=== PATIENT | female | born 1985 | race Caucasian/White ===

== ENCOUNTER 2017-11-07 03:44 | Emergency (ER) | payer SELFPAY ==
[2017-11-07 04:16] VITALS: RESP 18; TEMP 98.4; O2SAT 100
--- NOTE | 2017-11-07 04:29 | ED PDOC ---
Arrival/HPI - General Chief Complaint: Medical Clearance Time Seen by Provider: 11/07/17 03:52 Historian: Patient, Spouse - History of Present Illness Narrative History of Present Illness (Text): 11/07/17 04:28 Anna Villareal is a 32 year old female, P:1, currently 8 weeks , who presents to the emergency department complaining of vaginal bleeding with associated lower abdominal cramping tonight. 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 Patient last was full- term, delivered via . Patient denies any fever, chills, chest pain, shortness of breath, nausea, vomiting, diarrhea, urinary symptoms, back pain, neck pain, headache, dizziness, or any other complaints. Time/Duration: Other (tonight) Symptom Onset: Gradual Symptom Course: Unchanged Activities at Onset: Light Context: Home Past Medical History - Provider Review Nursing Documentation Reviewed: Yes - Psychiatric Hx Substance Use: No - Surgical History Hx Section: Yes Family/Social History - Physician Review Nursing Documentation Reviewed: Yes Family/Social History: Unknown Family HX Smoking Status: Never Smoked Hx Alcohol Use: No Hx Substance Use: No Allergies/Home Meds Allergies/Adverse Reactions: Allergies No Known Allergies Allergy (Verified 11/07/17 04:10) Home Medications: Home Meds Medication Instructions Recorded Confirmed No Known Home Med 11/07/17 11/07/17 Review of Systems - Physician Review All systems were reviewed & negative as marked: Yes - Review of Systems Constitutional: Normal. absent: Fevers Eyes: Normal ENT: Normal Respiratory: Normal. absent: SOB, Cough Cardiovascular: Normal. absent: Chest Pain Gastrointestinal: Abdominal Pain. absent: Diarrhea Genitourinary Female: Vaginal Bleeding. absent: Dysuria, Frequency, Hematuria, Urine Output Changes Musculoskeletal: Normal. absent: Back Pain, Neck Pain Skin: Normal. absent: Rash Neurological: Normal. absent: Headache, Dizziness Endocrine: Normal Hemo/Lymphatic: Normal Psychiatric: Normal Physical Exam Vital Signs Reviewed: Yes Vital Signs Temp Pulse Resp BP Pulse Ox 11/07/17 04:11 98.4 F 79 18 109/80 100 Temperature: Afebrile Blood Pressure: Normal Pulse: Regular Respiratory Rate: Normal Appearance: Positive for: Well-Appearing, Non-Toxic, Comfortable Pain Distress: None Mental Status: Positive for: Alert and Oriented X 3 - Systems Exam Head: Present: Atraumatic, Normocephalic Pupils: Present: PERRL Extroacular Muscles: Present: EOMI Conjunctiva: Present: Normal Mouth: Present: Moist Mucous Membranes Neck: Present: Normal Range of Motion Respiratory/Chest: Present: Clear to Auscultation, Good Air Exchange. No: Respiratory Distress, Accessory Muscle Use Cardiovascular: Present: Regular Rate and Rhythm, Normal S1, S2. No: Murmurs Abdomen: No: Tenderness, Distention, Peritoneal Signs Genitourinary/Pelvic Exam: Present: Normal External Genitalia, Vaginal Bleeding (small amount of vaginal bleeding), Cervical os Closed. No: Adenexal Tenderness , Adenexal Mass, Cervical Motion Tendernes Back: Present: Normal Inspection Upper Extremity: Present: Normal Inspection. No: Cyanosis, Edema Lower Extremity: Present: Normal Inspection. No: Edema Neurological: Present: GCS=15, CN II-XII Intact, Speech Normal Skin: Present: Warm, Dry, Normal Color. No: Rashes Psychiatric: Present: Alert, Oriented x 3, Normal Insight, Normal Concentration Medical Decision Making ED Course and Treatment: 11/07/17 04:28 Impression: 32 year old female complaining of vaginal bleeding and lower abdominal cramping tonight. Plan: -- Transvaginal US -- Labs, beta-HCG, blood type and screen -- UA -- Reassess and disposition Progress Notes: 11/07/17 06:30 Pt. with only minimal scanty vaginal bleed.Symptoms improved. 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 to be discharged for outpatient follow up with discharge instructions given. - Lab Interpretations Lab Results: 11/07/17 04:45 11/07/17 04:45 Lab Results 11/07/17 04:45: WBC 6.5, RBC 4.49, Hgb 11.2 L, Hct 34.9 L, MCV 77.7 L, MCH 24.9 L, MCHC 32.1, RDW 15.6 H, Plt Count 117 L, MPV 12.4 H 11/07/17 04:45: Sodium 143, Potassium 4.0, Chloride 106, Carbon Dioxide 23, Anion Gap 19, BUN 11, Creatinine 0.6 L, Est GFR ( Amer) > 60, Est GFR ( Non-Af Amer) > 60, Random Glucose 97, Calcium 9.1, Total Bilirubin 0.2, AST 22, ALT 28, Alkaline Phosphatase 46, Total Protein 7.8, Albumin 4.5, Globulin 3.3, Albumin/Globulin Ratio 1.4 11/07/17 04:45: Urine Color Red, Urine Appearance Bloody, Urine pH 7.0, Ur Specific [place] 1.020, Urine Protein >=300 H, Urine Glucose (UA) Negative, Urine Ketones Negative, Urine Blood Large H, Urine Nitrate Negative, Urine Bilirubin Negative, Urine Urobilinogen 0.2, Ur Leukocyte Esterase Negative, Urine RBC Tntc, Urine WBC Negative, Ur Epithelial Cells 6 - 8, Urine Bacteria Few, Urine Other Mucus, Urine HCG, Qual Positive 11/07/17 04:45: Blood Type Pending, Antibody Screen Pending, BBK History Checked No verified bt - RAD Interpretation Radiology Orders: 11/07/17 04:29 OB TRANSVAGINAL [US] Stat - Medication Orders Current Medication Orders: Acetaminophen (Tylenol 325mg Tab) 650 mg PO STAT STA Stop: 11/07/17 06:52 Sodium Chloride (Sodium Chloride 0.9%) 1,000 mls @ 100 mls/hr IV .Q10H [id number] Last Admin: 11/07/17 04:54 Dose: 100 mls/hr eMAR Start Stop Document 11/07/17 04:54 AD (Rec: 11/07/17 04:54 AD [id number]) Intravenous Solution Start Date 11/07/17 Start Time 04:54 - Scribe Statement The provider has reviewed the documentation as recorded by the Colin Vela Provider Scribe Attestation: All medical record entries made by the Scribe were at my direction and personally dictated by me. I have reviewed the chart and agree that the record accurately reflects my personal performance of the history, physical exam, medical decision making, and the department course for this patient. I have also personally directed, reviewed, and agree with the discharge instructions and disposition. Disposition/Present on Arrival - Present on Arrival Any Indicators Present on Arrival: No History of DVT/PE: No History of Uncontrolled Diabetes: No Urinary Catheter: No History of Decub. 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
[2017-11-07] MEDS ORDERED: Sodium Chloride 0.9% 1,000 ML IV SCH (04:30)
[2017-11-07 05:25] LABS: URINE BILIRUBIN NEGATIVE (NEGATIVE); URINE BLOOD LARGE (NEGATIVE); URINE GLUCOSE (UA) NEGATIVE (NEGATIVE); URINE LEUKOCYTE ESTERASE NEGATIVE Leu/uL (NEGATIVE); URINE PROTEIN >=300 mg/dL (<30 mg/dL); URINE UROBILINOGEN 0.2 E.U./dL (<1 E.U./dL)
[2017-11-07 05:27] LABS: HEMOGLOBIN 11.2 g/dL (12.0-16.0); MEAN CELL VOLUME 77.7 fl (80.0-105.0); MEAN CORPUSCULAR HEMOGLOBIN 24.9 pg (25.0-35.0); MEAN CORPUSCULAR HGB CONC 32.1 g/dl (31.0-37.0); MEAN PLATELET VOLUME 12.4 fl (7.0-11.0); RBC 4.49 10^6/uL (3.5-6.1); RED CELL DISTRIBUTION WIDTH 15.6 % (11.5-14.5); WHITE BLOOD COUNT 6.5 10^3/ul (4.5-11.0)
[2017-11-07 05:28] LABS: HCG,QUALITATIVE URINE POSITIVE (NEGATIVE)
[2017-11-07 05:29] LABS: URINE APPEARANCE BLOODY (CLEAR); URINE COLOR RED (YELLOW)
[2017-11-07 05:33] LABS: URINE RBC TNTC /hpf (0-2); URINE WBC NEGATIVE /hpf (0-6)
[2017-11-07 05:34] LABS: URINE BACTERIA FEW (NEG)
[2017-11-07 05:36] LABS: ALB/GLOB RATIO 1.4 (1.1-1.8); ALBUMIN 4.5 g/dL (3.0-4.8); ALT/SGPT 28 U/L (7-56); AST/SGOT 22 U/L (14-36); BLOOD UREA NITROGEN 11 mg/dL (7-21); CALCIUM 9.1 mg/dL (8.4-10.5); GFR AFRICAN-AMERICAN > 60; GFR NON-AFRICAN AMERICAN > 60
--- NOTE | 2017-11-07 06:26 | US ---
EXAM: US First Trimester, Transabdominal US , Transvaginal CLINICAL HISTORY: 32 years old, female; Signs and symptoms; Lmp or gestational age (in weeks): 09/05/2017; Other: Heavy bleeding with clots; ; Additional info: Pain TECHNIQUE: Real-time transabdominal and transvaginal obstetrical ultrasound of the maternal pelvis and a first trimester with image documentation. Transvaginal imaging was used for better evaluation of the fetus and adnexa. Real time cine loop images are submitted.Grayscale, color and spectral pulse Doppler images are submitted.A duplex/doppler ultrasound was performed specifically BOTH COLOR FLOW AND spectral Doppler analysis (waveforms) were performed and interpreted. COMPARISON: No relevant prior studies available. FINDINGS: Limitations: Limited by bowel gas. Beta-hCG level: Positive urine beta hCG. Gestation: There is a gestational sac with migration of gestational sac in the lower uterine segment/cervix. These findings represent spontaneous in progress in view of patient's history of heavy bleeding and passage of clots and migration of the gestational sac. There is a yolk sac present. There is no embryonic pole demonstrated. The average ultrasound age of the gestation calculated from mean sac diameter is 5 weeks and 6 days. Placenta/amniotic fluid: Cannot be adequately evaluated due to the early gestational age. Uterus/cervix: The endometrial stripe measures 17 mm. No myometrial mass. Ovaries: The right ovarian cyst measuring 2.6 x 2.0 x 2.0 cm. The right ovary measures 4.6 x 2.7 x 4.1 cm. The left ovary measures 2.5 x 2.1 x 2.6 cm. Duplex assessment demonstrates presence of color Doppler signal and spectral Doppler waveform in right ovary. Duplex assessment demonstrates presence of color Doppler signal and spectral Doppler waveform in left ovary. No mass. Free fluid: No free fluid. IMPRESSION: 1. There is a gestational sac with migration of gestational sac in the lower uterine segment/cervix. These findings represent spontaneous in progress in view of patient's history of heavy bleeding and passage of clots and migration of the gestational sac. 2. The right ovarian simple corpus luteum measuring 2.6 x 2.0 x 2.0 cm. Correlation with clinical OB evaluation and further workup or followup as recommended by patient's clinical data.
[2017-11-07 07:13] VITALS: BP 110/86; PULSE 78
== END 2017-11-07 07:47 | disposition home or self-care (01) ==
LOC: ED 03:44
DX: O03.9 Complete or unspecified spontaneous abortion without complication (principal); Z3A.08 8 weeks gestation of pregnancy
CPT/HCPCS: 76817; 80053; 81001; 84702; 84703; 85027; 86850; 86900; 99282; J7040

== ENCOUNTER 2017-11-07 10:46 | Emergency (ER) | payer OTHER ==
[2017-11-07] MEDS ORDERED: Sodium Chloride 0.9% 1,000 ML IV STA (12:13)
--- NOTE | 2017-11-07 12:18 | ED PDOC ---
Arrival/HPI - General EM Caveat: Unstable Vital Signs <Rae Page - Last Filed: 11/07/17 15:15> <Karyn James - Last Filed: 11/07/17 16:55> - General Chief Complaint: Female Genitourinary Time Seen by Provider: 11/07/17 11:59 - History of Present Illness Narrative History of Present Illness (Text): 11/07/17 12:14 Patient is a 32 year old female who is returning to the ED after being here early this morning for spontaneous . Patient says she has been having a lot of vaginal bleeding but once she left this morning her pain increased and she started passing large clots. Patient says she has soaked through approximately 3 pads since she left here at 7:00 this morning (last 5 hours). Patient says she also felt like she needed to come in because while at home she became very lightheaded and almost passed out, however she did not completely lose consciousness. Upon arrival here, patients vitals were unstable as she was tachycardic and hypotensive. Patient is currently having a lot of lower abdominal pain and still feeling lightheaded laying here in bed. She looked unsteady on her feet as I saw her walking in from the waiting room. Patient says she has been anemic before and when questioned further, she explains that she became anemic while having her first child. Patient denies ever having a transfusion in the past. (Rae Page) Past Medical History - Infectious Disease Hx of Infectious Diseases: None - Psychiatric Hx Substance Use: No - Surgical History Hx Section: Yes - Anesthesia Hx Anesthesia: No <Rae Page - Last Filed: 11/07/17 15:15> Family/Social History Family/Social History: Unknown Family HX Smoking Status: Never Smoked Hx Alcohol Use: No Hx Substance Use: No <Rae Page - Last Filed: 11/07/17 15:15> Allergies/Home Meds <Rae Page - Last Filed: 11/07/17 15:15> <Karyn James - Last Filed: 11/07/17 16:55> Allergies/Adverse Reactions: Allergies No Known Allergies Allergy (Verified 11/07/17 16:22) Home Medications: Home Meds Medication Instructions Recorded Confirmed No Known Home Med 11/07/17 11/07/17 Review of Systems - Physician Review All systems were reviewed & negative as marked: Yes - Review of Systems Constitutional: absent: Fevers Eyes: absent: Vision Changes ENT: absent: Hearing Changes Respiratory: absent: SOB Cardiovascular: absent: Chest Pain, Palpitations, Edema, Syncope Gastrointestinal: Abdominal Pain (suprapubic). absent: Constipation, Diarrhea, Nausea, Vomiting Genitourinary Female: Vaginal Bleeding (passing clots). absent: Dysuria Neurological: Dizziness, Gait Changes (slow, unsteady). absent: Headache <Rae Page - Last Filed: 11/07/17 15:15> Physical Exam Temperature: Afebrile Blood Pressure: Hypotensive Pulse: Tachycardic Respiratory Rate: Normal Appearance: Positive for: Non-Toxic, Uncomfortable Pain Distress: Moderate Mental Status: Positive for: Alert and Oriented X 3. No: Confused, Lethargic - Systems Exam Head: Present: Atraumatic, Normocephalic Pupils: Present: PERRL Extroacular Muscles: Present: EOMI Conjunctiva: Present: Normal Mouth: Present: Dry Respiratory/Chest: Present: Clear to Auscultation, Good Air Exchange. No: Respiratory Distress, Accessory Muscle Use Cardiovascular: Present: Normal S1, S2, Tachycardic. No: Murmurs Abdomen: Present: Tenderness (suprapubic), Guarding (voluntary). No: Distention , Peritoneal Signs Genitourinary/Pelvic Exam: Present: Normal External Genitalia, Vaginal Bleeding (minimal), Other (tender with vaginal exam) Upper Extremity: Present: Normal Inspection. No: Cyanosis, Edema Lower Extremity: Present: Normal Inspection. No: Edema Neurological: Present: GCS=15, Speech Normal Skin: Present: Warm, Dry, Pale. No: Rashes Psychiatric: Present: Alert, Oriented x 3, Normal Insight, Normal Concentration <Rae Page - Last Filed: 11/07/17 15:15> Vital Signs Temp Pulse Resp BP Pulse Ox 11/07/17 15:47 83 18 146/58 L 11/07/17 15:39 98.2 F 88 18 146/58 L 96 11/07/17 14:44 83 18 101/52 L 17 L 11/07/17 12:49 93 H 18 104/61 95 11/07/17 11:20 98.8 F 104 H 20 95/45 L 100 Medical Decision Making <Rae Page - Last Filed: 11/07/17 15:15> - Lab Interpretations I have reviewed the lab results: Yes <Karyn James - Last Filed: 11/07/17 16:55> ED Course and Treatment: 11/07/17 12:28 Patient arrived with unstable vitals (hypotensive and tachycardic). Will bolus 1 L of normal saline and get routine labs, type and screen, and coagulation studies. Will monitor vitals. 11/07/17 13:47 H&H dropped from overnight from 11.2 to 9.5 however, vital signs stabilized. Dr. James spoke with Dr. Almanzar at [facility] and accepted the patient for transfer to better meet her obstetric needs. This was conveyed to the patient and her , and both agreed with the treatment plan. (Rae Page) Impression: In agreement with resident note, which includes further HPI details. Patient was seen and evaluated with resident, came up with plan and treatment together. Plan: -- Labs, blood type and screen -- IV fluids -- Reassess and disposition Prior ER visit from earlier this morning was reviewed, US from 4 AM reviewed. History obtained with family translating at bedside. Patient states she has been experiencing persistent vaginal bleeding and lower abdominal cramping since leaving the Emergency room. On initial evaluation, pt is mildly hypotensive, tachycardic at 106 bpm. Lab evaluation shows hemoglobin dropped to 9.5, although at 2PM heart rate has improved to 90 bpm, blood pressure: 104/61. Pt has minimal bleeding on exam, although pt described heavier clots when going to bathroom. Case discussed with OBGYN certified personal finance counselor, Dr. Almanzar, who accepts transfer to [facility]. Spoke directly to [facility] ER attending Dr. Tabor, who also accepts pt to ER. Treatment plan has been discussed with pt and transfer form has been completed. (Karyn James) - Lab Interpretations Lab Results: 11/07/17 12:30 11/07/17 12:30 Lab Results 11/07/17 12:30: Blood Type A POSITIVE, Antibody Screen Negative, BBK History Checked Patient has bt 11/07/17 12:30: Sodium 142, Potassium 4.2, Chloride 108 H, Carbon Dioxide 24, Anion Gap 14, BUN 7, Creatinine 0.5 L, Est GFR ( Amer) > 60, Est GFR (Non -Af Amer) > 60, Random Glucose 80, Calcium 9.0, Total Bilirubin 0.1 L, AST 19, ALT 23, Alkaline Phosphatase 38, Total Protein 6.7, Albumin 3.9, Globulin 2.8, Albumin/Globulin Ratio 1.4 11/07/17 12:30: PT 12.3, INR 1.07, APTT 25.2 11/07/17 12:30: WBC 8.3 D, RBC 3.82, Hgb 9.5 L, Hct 29.4 L, MCV 77.0 L, MCH 24.9 L, MCHC 32.3, RDW 15.6 H, Plt Count 108 L, MPV 11.6 H, Gran % 73.0 H, Lymph % (Auto) 19.5 L, [place] % (Auto) 5.4, Eos % (Auto) 2.0, Baso % (Auto) 0.1, Gran # 6.08, Lymph # (Auto) 1.6, [place] # (Auto) 0.5, Eos # (Auto) 0.2, Baso # ( Auto) 0.01 - Medication Orders Current Medication Orders: Discontinued Medications Sodium Chloride (Sodium Chloride 0.9%) 1,000 mls @ 999 mls/hr IV .Q1H1M STA Stop: 11/07/17 13:13 Last Admin: 11/07/17 12:50 Dose: 999 mls/hr eMAR Start Stop Document 11/07/17 12:50 GMD (Rec: 11/07/17 12:50 GMD [id number]) Intravenous Solution Start Date 11/07/17 Start Time 12:50 End Date 11/07/17 End time 13:51 Total Infusion Time 61 - PA / DERRICK MAN / Resident Statement ALMA has reviewed & agrees with the documentation as recorded. / has examined the patient and agrees with the treatment plan. <Rae Page - Last Filed: 11/07/17 15:15> Disposition/Present on Arrival - Present on Arrival Any Indicators Present on Arrival: No History of DVT/PE: No History of Uncontrolled Diabetes: No Urinary Catheter: No History of Decub. Ulcer: No History Surgical Site Infection Following: None - Disposition Have Diagnosis and Disposition been Completed?: Yes Disposition Time: 13:58 Patient Plan: Transfer To ([facility]) <Rae Page - Last Filed: 11/07/17 15:15> <Karyn James - Last Filed: 11/07/17 16:55> - Disposition Diagnosis: Spontaneous miscarriage, Anemia due to blood loss, acute Disposition: Transfer [facility] Condition: FAIR Referrals: [facility] Reriya, [Primary Care Provider] - Follow up with primary Katerin Almanzar MD [Staff Provider] - Follow up with primary Forms: [employer] (Czech)
[2017-11-07 12:49] VITALS: RESP 18
[2017-11-07 12:50] LABS: BASO # 0.01 K/mm3 (0.0-2.0); BASO % 0.1 % (0.0-3.0); EOS # 0.2 (0.0-0.7); GRAN # 6.08 (1.4-6.5); HEMOGLOBIN 9.5 g/dL (12.0-16.0); LYMPH # 1.6 (1.2-3.4); LYMPH % 19.5 % (22.0-35.0); MEAN CORPUSCULAR HEMOGLOBIN 24.9 pg (25.0-35.0); MEAN CORPUSCULAR HGB CONC 32.3 g/dl (31.0-37.0); MEAN PLATELET VOLUME 11.6 fl (7.0-11.0); MONO # 0.5 (0.1-0.6); MONO % 5.4 % (1.0-6.0); RBC 3.82 10^6/uL (3.5-6.1); RED CELL DISTRIBUTION WIDTH 15.6 % (11.5-14.5); WHITE BLOOD COUNT 8.3 10^3/ul (4.5-11.0)
[2017-11-07 13:03] LABS: ALB/GLOB RATIO 1.4 (1.1-1.8); ALBUMIN 3.9 g/dL (3.0-4.8); ALT/SGPT 23 U/L (7-56); AST/SGOT 19 U/L (14-36); BLOOD UREA NITROGEN 7 mg/dL (7-21); GFR AFRICAN-AMERICAN > 60; GFR NON-AFRICAN AMERICAN > 60
[2017-11-07 13:17] LABS: INR 1.07 (0.93-1.08); PARTIAL THROMBOPLASTIN TIME 25.2 Seconds (25.1-36.5); PROTHROMBIN TIME 12.3 SECONDS (9.4-12.5)
[2017-11-07 15:40] VITALS: BP 146/58; TEMP 98.2; O2SAT 96
[2017-11-07 15:48] VITALS: PULSE 83
--- NOTE | 2017-11-07 21:09 | CARD ---
APPROVED REPORT EKG Measurement Heart [id number] <Conclusion> Normal sinus rhythm Normal ECG
== END 2017-11-07 15:47 | disposition short-term general hospital (02) ==
LOC: ED 10:46
DX: O03.9 Complete or unspecified spontaneous abortion without complication (principal); D62 Acute posthemorrhagic anemia
CPT/HCPCS: 80053; 85025; 85610; 85730; 86850; 86900; 93005; 96360; 99284; J7040